=== PATIENT | female | born 1970 | race American Indian/Alaskan Native ===

== ENCOUNTER 2019-03-24 19:53 | Emergency (ER) | payer OTHER ==
[2019-03-24 21:04] VITALS: BP 163/96
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
[2019-03-24] MEDS ORDERED: IBUPROFEN 800 MG TAB PO ONE (21:44)
--- NOTE | 2019-03-24 21:49 | Cat Scan Report ---
CT CERVICAL SPINE: 03/24/2019 INDICATION / CLINICAL INFORMATION: neck pain. Trauma COMPARISON: None available. FINDINGS: CT images of the cervical spine were obtained. Images are evaluated in the axial, coronal, and sagit michael planes. There is no evidence of acute abnormality. Vertebral body alignment is well preserved. Some minimal degenerative disc changes are present. . CRANIOCERVICAL JUNCTION: Unremarkable. PARASPINAL STRUCTURES: Unremarkable. IMPRESSION: No acute abnormality. All CT scans at this location are performed using dose reduction to ALARA by means of automated expos ure control. Signer Name: Carlos Roy MD Signed: 03/24/2019 9:44 PM Workstation Name: [id number]
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
== END 2019-03-24 23:00 | disposition home or self-care (01) ==
LOC: ED 19:53
DX: S13.4XXA Sprain of ligaments of cervical spine, initial encounter (principal); I10 Essential (primary) hypertension; F17.200 Nicotine dependence, unspecified, uncomplicated; J45.909 Unspecified asthma, uncomplicated; F32.9 Major depressive disorder, single episode, unspecified; Z90.710 Acquired absence of both cervix and uterus; Z79.899 Other long term (current) drug therapy; V89.2XXA Person injured in unspecified motor-vehicle accident, traffic, initial encounter; Y93.89 Activity, other specified; Y92.410 Unspecified street and highway as the place of occurrence of the external cause; Y99.8 Other external cause status
CPT/HCPCS: 72125